=== PATIENT | female | born 1980 | race Caucasian/White ===

== ENCOUNTER 2020-02-08 08:32 | Outpatient (CLI) | payer OTHER ==
[2020-02-09 12:39] LABS: SARS-CoV-2 MS2 Positive; SARS-CoV-2 N Gene Negative; SARS-CoV-2 S Gene Negative; SARS-CoV-2 by NAA Not Detected (NotDetected); SARS-CoV-2 orf1ab Negative
== END 2020-02-08 08:33 | disposition home or self-care (01) ==
LOC: LABSCS 08:32
PROVIDERS: ATTEND Obstetrics & Gynecology
DX: Z01.812 Encounter for preprocedural laboratory examination (principal); Z11.59 Encounter for screening for other viral diseases
CPT/HCPCS: 87635; U0003

== ENCOUNTER 2020-02-11 11:13 | Inpatient (IN) | payer MEDICAID, OTHER, SELFPAY ==
[2020-02-11] MEDS ORDERED: Ibuprofen 800 MG TAB PO PRN (19:15)
[2020-02-11] MEDS ORDERED: Lidocaine 1% (PF) 30 ML VIAL SC PRN (19:15)
[2020-02-11] MEDS ORDERED: NS w/ Oxytocin 10 units 500 ML IV SCH ×2 (19:15)
[2020-02-11] MEDS ORDERED: Methylergonovine 0.2 MG/ML VIAL IM PRN (19:15)
[2020-02-11] MEDS ORDERED: Misoprostol 200 MCG TAB PR PRN (19:15)
[2020-02-11] MEDS ORDERED: Diphenoxylate HCl/Atropine Tablet PO PRN ×2 (19:15)
[2020-02-11] MEDS ORDERED: HYDROcodone/Acetaminophen 5/325 mg Tablet PO PRN ×2 (19:15)
[2020-02-11] MEDS ORDERED: Ondansetron PF 4 MG/2 ML Vial IVP PRN (19:15)
[2020-02-11] MEDS ORDERED: Carboprost 250 MCG/ML AMP IM PRN (19:15)
[2020-02-11] MEDS ORDERED: Docusate 100 MG CAP PO PRN (19:15)
[2020-02-11] MEDS ORDERED: hydrALAZINE 20 MG/ML VIAL SLOW IVP PRN (19:15)
[2020-02-11] MEDS ORDERED: NS / Oxytocin 40 units/1000ml 1,000 ML IV PRN (19:15)
[2020-02-11] MEDS ORDERED: Zolpidem Tartrate 5 MG TAB PO PRN (19:15)
[2020-02-11] MEDS ORDERED: Butorphanol Tartrate 1 MG/ML VIAL SLOW IVP PRN (19:15)
[2020-02-11] MEDS ORDERED: Acetaminophen 500 MG TAB PO PRN (19:15)
[2020-02-11] MEDS ORDERED: Promethazine HCl 25 MG/ML VIAL IM PRN (19:15)
--- NOTE | 2020-02-11 19:15 | PDOC.LDHP ---
Labor and Delivery H&P Chief complaint: scheduled induction HPI: 39 y/o at 39 and 2/7 weeks for term induction of labor. EDC 02/16/20. GBS Positive. Grav: 2 Para: 1 Current complications: other (Advanced Maternal Age) Abnormal US findings: No Current medications: pre- vitamins Previous surgical history: none Social history: none - Physical Exam Vital signs reviewed and normal: yes General: NAD, resting Heart: RRR Lungs: CTAB Abdomen: gravid Extremeties: no edema FHT: category 1 - Assessment L&D Assessment: elective induction at term - Plan Plan: admit to L&D, cervical ripening
[2020-02-11 20:48] VITALS: BMI 25.7
[2020-02-11] MEDS ORDERED: Penicillin G Potassium 5 MILL.UNITS in Sodium Chloride 0.9% 100 ML IVPB SCH (21:15)
[2020-02-11] MEDS: Lactated Ringer's 1,000 ML IV SCH (21:15)
[2020-02-11 21:48] LABS: Hemoglobin 10.8 g/dL (12.0-16.0); Mean Corpuscular HGB CONC 33.3 g/dL (32.0-36.0); Mean Corpuscular Hemoglobin 28.4 pg (27.0-31.0); Mean Corpuscular Volume 85.3 fL (78.0-98.0); Mean Platelet Volume 8.3 fL (7.4-10.4); Platelet Count 212 thou/uL (130-400); Red Blood Cell (RBC) Count 3.79 mill/uL (4.20-5.40); White Blood Cell (WBC) Count 8.6 thou/uL (4.8-10.8)
[2020-02-11 22:23] LABS: Syphilis Antibody Nonreactive (Nonreactive); Syphilis Antibody Index 0.04 S/CO (<1.00 Non-Reactive)
[2020-02-11 22:57] LABS: HBSAg Index 0.11 S/CO (0-0.99); Hep B Surf Ag Non-Reactive S/CO (NonReactive)
[2020-02-11] MEDS: Misoprostol 100 MCG TAB VAG SCH (23:16)
[2020-02-12] MEDS: Penicillin G 2.5 MILL.units 2.5 MILL.UNITS in Premix Bag 1 BAG IVPB SCH ×4 (05:11→17:32)
[2020-02-12] MEDS ORDERED: Fentanyl 4 mcg/Bup 0.1% Cadd 100 ML ONE (13:13)
[2020-02-12] MEDS ORDERED: Acetaminophen 325 MG TAB PO PRN (13:36)
[2020-02-12] MEDS ORDERED: diphenhydrAMINE 50 MG/ML VIAL IVP PRN (13:36)
[2020-02-12] MEDS ORDERED: Ondansetron PF 4 MG/2 ML Vial IVP PRN ×2 (13:36→21:51)
[2020-02-12] MEDS ORDERED: EPHEDRINE 25 MG/5 ML SYRINGE SLOW IVP PRN (13:36)
[2020-02-12] MEDS ORDERED: Promethazine HCl 25 MG/ML VIAL IM PRN ×2 (13:36→21:51)
[2020-02-12] MEDS ORDERED: Naloxone HCl 0.4 mg/ml Vial IVP PRN ×2 (13:36)
[2020-02-12] MEDS ORDERED: Lactated Ringer's 500 ML IV PRN (13:36)
[2020-02-12] MEDS ORDERED: Communication Order-Pharmacy FS SCH (13:45)
[2020-02-12] MEDS ORDERED: Fentanyl 4 mcg/Bupivacaine 0.1% Cassette 100 ML EPIDURAL SCH (13:45)
[2020-02-12] MEDS: Lactated Ringer's 1,000 ML IV SCH (14:02)
[2020-02-12] MEDS ORDERED: Methylergonovine 0.2 MG/ML VIAL ONE (18:35)
[2020-02-12] MEDS ORDERED: Misoprostol 200 MCG TAB ONE (18:35)
[2020-02-12] MEDS ORDERED: Bisacodyl 10 MG SUPP PR PRN (21:51)
[2020-02-12] MEDS ORDERED: diphenhydrAMINE 25 MG CAP PO PRN (21:51)
[2020-02-12] MEDS ORDERED: Zolpidem Tartrate 5 MG TAB PO PRN (21:51)
[2020-02-12] MEDS ORDERED: HYDROcodone/Acetaminophen 5/325 mg Tablet PO PRN ×2 (21:51)
[2020-02-12] MEDS ORDERED: NS / Oxytocin 40 units/1000ml 1,000 ML IV SCH (21:51)
[2020-02-12] MEDS ORDERED: Benzocaine-Menthol 82.5 ML CAN TOP PRN (21:51)
[2020-02-12] MEDS ORDERED: Lanolin Ointment 7 GM TUBE TOP PRN (21:51)
[2020-02-12] MEDS ORDERED: Milk Of Magnesia 30 ML UDCUP PO PRN (21:51)
[2020-02-12] MEDS ORDERED: hydrALAZINE 20 MG/ML VIAL SLOW IVP PRN (21:51)
[2020-02-12] MEDS ORDERED: Preparation H Ointment 28 GM TUBE PR PRN (21:51)
[2020-02-12] MEDS ORDERED: Docusate Calcium (SURFAK) 240 MG CAP PO SCH (22:00)
[2020-02-12] MEDS: Ibuprofen 800 MG TAB PO SCH (22:16)
[2020-02-13] MEDS: Lactated Ringer's 1,000 ML IV SCH (00:53)
[2020-02-13] MEDS: Misoprostol 100 MCG TAB VAG SCH (00:53)
[2020-02-13] MEDS: Penicillin G 2.5 MILL.units 2.5 MILL.UNITS in Premix Bag 1 BAG IVPB SCH (00:54)
[2020-02-13 05:19] LABS: Hemoglobin 9.9 g/dL (12.0-16.0); Mean Corpuscular HGB CONC 32.4 g/dL (32.0-36.0); Mean Corpuscular Hemoglobin 27.5 pg (27.0-31.0); Mean Corpuscular Volume 84.9 fL (78.0-98.0); Mean Platelet Volume 8.5 fL (7.4-10.4); Platelet Count 156 thou/uL (130-400); Red Blood Cell (RBC) Count 3.61 mill/uL (4.20-5.40); White Blood Cell (WBC) Count 14.2 thou/uL (4.8-10.8)
[2020-02-13] MEDS: Ibuprofen 800 MG TAB PO SCH ×3 (05:44→22:24)
[2020-02-13] MEDS ORDERED: Varicella virus, LIVE 0.5 ML VIAL SC ONE (09:00)
[2020-02-13] MEDS ORDERED: Measles/Mumps/Rubella 10 MCG/0.5 ML VIAL SC ONE (09:00)
[2020-02-13] MEDS ORDERED: Adacel (T-DAP) 0.5 ML SYRINGE IM ONE (09:00)
[2020-02-13] MEDS: Prenatal Vitamin 1 TAB PO SCH (09:08)
[2020-02-13] MEDS: Ferrous Sulfate 325 MG TAB PO SCH ×2 (09:09→16:21)
[2020-02-13] MEDS: Docusate Calcium (SURFAK) 240 MG CAP PO SCH ×2 (09:09→22:25)
--- NOTE | 2020-02-13 20:07 | PDOC.PP ---
Post Progress Note Post Day #: 1 PO intake tolerated: yes Flatus: yes Ambulation: yes Vital Signs (12 hours) Temp Pulse Resp BP Pulse Ox 02/13/20 19:09 98.4 F 79 20 103/58 L 97 02/13/20 16:44 98.4 F 70 16 103/56 L 98 02/13/20 12:02 98.0 F 72 20 106/61 02/13/20 08:07 98.1 F 67 20 107/62 97 Weight Weight 153 lb - Physical Examination General: NAD Cardiovascular: no m/r/g, RRR Respiratory: clear to auscultation bilaterally, non-labored breathing Abdominal: + bowel sounds, lochia, no distention Extremities: negative homans (B) Neurological: no gross focal deficits Result Diagrams: 02/13/20 04:47 Additional Labs: Post Labs Blood Type O POSITIVE 02/11/20 22:31 Hep Bs Antigen Non-Reactive S/CO (NonReactive) 02/11/20 21:23
[2020-02-14] MEDS: Ibuprofen 800 MG TAB PO SCH (05:57)
[2020-02-14 08:11] VITALS: BP 118/67; TEMP 98
[2020-02-14] MEDS: Ferrous Sulfate 325 MG TAB PO SCH (08:25)
[2020-02-14] MEDS: Prenatal Vitamin 1 TAB PO SCH (08:25)
[2020-02-14] MEDS: Docusate Calcium (SURFAK) 240 MG CAP PO SCH (08:26)
--- NOTE | 2020-02-15 06:02 | DN ---
DATE OF PROCEDURE: 02/12/2020 DATE/TIME OF SERVICE: 02/12/2020 at 1830 hours central daylight savings time. PREOPERATIVE DIAGNOSIS: Intrauterine at 39 weeks and 3 days with a 39-week induction of labor. POSTOPERATIVE DIAGNOSIS: Intrauterine at 39 weeks and 3 days with a 39-week induction of labor. PROCEDURE PERFORMED: Spontaneous vaginal delivery over a second-degree midline episiotomy. FINDINGS: Viable male , weighing 4144 g or 9 pounds 2 ounces with Apgars of 8 and 9. QUANTITATIVE BLOOD LOSS: 224 mL. COMPLICATIONS: None. PROCEDURE IN DETAIL: The patient presented to [facility] where she was admitted to the labor and delivery service. The patient underwent a normal and uneventful labor with normal cervical dilatation until she was found to be completely dilated. She was then allowed to push, but had difficulty delivering past the perineum. After the patient underwent several contractions where she was trying to push the baby's head past the perineum, it became apparent that this was an extremely large fetus for this small patient. She was having a very difficult time delivering the head and it was obvious that at some point she would have a laceration occur. In order to expedite delivery of the fetus and minimize perineal injury from uncontrolled tearing, we went ahead and made a small episiotomy, approximately 15 mm in length. She then delivered in a vertex presentation without shoulder dystocia or further difficulties; however, the baby was estimated at that point to be somewhat over 9 pounds. Once out the baby's mouth and nose were bulb suctioned. The cord was clamped and cut and baby was handed to waiting attendants. Cord blood was collected. Gentle fundal massage was performed and the placenta delivered intact without problems. Hemostasis was assured. Quantitative blood loss was calculated. Inspection of the cervix, vaginal vault, and perineum did not reveal any lacerations needing suturing. Once again, hemostasis was within normal limits and the patient was allowed to recover in the labor and delivery room. Baby went to nursery. Job ID: [id number] [facility]
== END 2020-02-14 13:15 | disposition home or self-care (01) | DRG 807 ==
LOC: L&D 20:10 → 3SE 02-12 22:31
PROVIDERS: ADMIT Obstetrics & Gynecology; ATTEND Obstetrics & Gynecology
PROC: 10E0XZZ Delivery of Products of Conception, External Approach (ICD-10-PCS; principal; 2020-02-12)
PROC: 3E033VJ Introduction of Other Hormone into Peripheral Vein, Percutaneous Approach (ICD-10-PCS; 2020-02-12)
DX: O99.824 Streptococcus B carrier state complicating childbirth (principal); Z37.0 Single live birth; O70.1 Second degree perineal laceration during delivery; Z3A.39 39 weeks gestation of pregnancy
CPT/HCPCS: 36415; 51702; 85027; 86780; 86850; 86900; 86901; 87340; J2210; J2540; J2590; J3490